=== PATIENT | female | born 1965 | race Caucasian/White ===

== ENCOUNTER 2025-02-19 13:25 | Emergency (ER) | payer OTHER ==
[~2025-02-19] VITALS: Ht 165.1 cm; Wt 81.8 kg
[2025-02-19 13:33] VITALS: BP 132/75; PULSE 64; RESP 18; TEMP 97.3; O2SAT 95
[2025-02-19] MEDS: FLUORESCEIN SODIUM 1 MG STRIP OD ONE (15:45)
[2025-02-19] MEDS: PROPARACAINE HCL 0.5% 15 ML OPHTHALMIC SOLUTION OD ONE (15:45)
== END 2025-02-19 16:01 | disposition home or self-care (01) ==
LOC: EMS 13:34
DX: R51.9 Headache, unspecified (principal); H57.11 Ocular pain, right eye
CPT/HCPCS: 99282; Z7502